=== PATIENT | female | born 1980 | race Caucasian/White ===

== ENCOUNTER 2020-01-20 15:59 | Emergency (ER) | payer OTHER ==
[~2020-01-20] VITALS: Ht 160 cm; Wt 83.0 kg
--- NOTE | 2020-01-20 16:22 | NUR ---
Pt here with c/o SOB. Has couogh and fever. Fall yesterday resulted in L clavicle injury. No deformity noted.
[2020-01-20] MEDS ORDERED: ACETAMINOPHEN 500 MG TABLET PO ONE (16:30)
[2020-01-20] MEDS ORDERED: SODIUM CHLORIDE 0.9% 1,000ML IVBOLUS ONE (16:30)
[2020-01-20] MEDS ORDERED: ACETAMINOPHEN 500 MG TABLET ONE (16:52)
[2020-01-20] MEDS ORDERED: PLEASE ENTER ALLERGIES MC SCH (17:00)
[2020-01-20 17:25] LABS: MEAN CORPUSCULAR HEMOGLOBIN 30.5 pg (27.0-34.8); MEAN CORPUSCULAR HGB CONC 33.6 g/dL (32.4-35.8); MEAN PLATELET VOLUME 8.8 fL (7.4-10.4); PLATELET COUNT 213 x10^3/uL (130-400); RED BLOOD COUNT 4.26 x10^6/uL (3.82-5.3); RED CELL DISTRIBUTION WIDTH 13.8 % (9.6-15.2)
[2020-01-20 17:34] LABS: MD YES
[2020-01-20 17:42] LABS: ALANINE AMINOTRANSFERASE 92 U/L (12-78); ALBUMIN 3.2 g/dL (3.4-5.0); ANION GAP 10 mmol/L (5-15); CALCIUM 8.7 mg/dL (8.5-10.1); CHLORIDE 100 mmol/L (98-107); CREATININE 0.84 mg/dL (0.55-1.02)
[2020-01-20 17:46] LABS: ALKALINE PHOSPHATASE 131 U/L (45-117); BILIRUBIN,TOTAL 1.4 mg/dL (0.2-1.0); TOTAL PROTEIN 7.8 g/dL (6.4-8.2)
--- NOTE | 2020-01-20 18:15 | NUR ---
Pt in bed, continues to take off her oxygen, cant seem to stop moving around in bed. States daily meth use. Requesting food. VS updated.
[2020-01-20 18:42] LABS: BAND#(MANUAL) 1.08 x10^3/uL; BANDS%(MANUAL) 6 % (0-7); LYMPH#(MANUAL) 1.98 x10^3/uL (1-3.4); LYMPHS% (MANUAL) 11 % (22-44); MONOS#(MANUAL) 0.54 x10^3/uL (0.3-2.7); MONOS% (MANUAL) 3 % (2-9); SEGS% (MANUAL) 80 % (42-75)
[2020-01-20 18:43] LABS: <RBC MORPHOLOGY> NORMAL
[2020-01-20 18:44] LABS: <PLATELET ESTIMATE> ADEQUATE; <PLT MORPHOLOGY> NORMAL PLT MORPH
[2020-01-20] MEDS ORDERED: CEFTRIAXONE PMX 1GM/50ML 50 ML IV ONE (19:00)
[2020-01-20] MEDS ORDERED: AZITHROMYCIN 500 MG in SODIUM CHLORIDE 0.9% 250 ML IV ONE (19:00)
--- NOTE | 2020-01-20 19:02 | NUR ---
Report to [facility]
[2020-01-20] MEDS ORDERED: CEFTRIAXONE PMX 1GM/50ML 50 ML ONE (19:16)
[2020-01-20 19:22] VITALS: BP 100/49
--- NOTE | 2020-01-20 19:32 | NUR ---
RN ROUNDING ON PT. STARTING ATB. PT MOANING. COMPLAINING THAT SHE CAN'T BREATHE WITH MASK ON. PT INFORMED SHE MUST KEEP MASK ON WHEN IN THE ROOM. PT HAD REMOVED OXYGEN 89% RA, PLACED BACK ON 3L. RN ASKED IF PT IS IN PAIN, PT SAID "NO, I JUST FEEL TERRIBLE". PT STATING SHE WILL LEAVE HOSPITAL WHEN ATB ARE DONE. [facility].
--- NOTE | 2020-01-20 20:25 | NUR ---
PT REMOVING OXYGEN. PT DESAT TO 87% ON RA WHEN SLEEPING. MD NOTIFIED.
--- NOTE | 2020-01-20 20:41 | NUR ---
Pt desat to 88% on RA. RN informed pt that she needs oxygen. Pt refusing. Pt refusing to wear a mask. Pt coughing all over room. notified of pt refusing oxygen at this time.
--- NOTE | 2020-01-20 21:17 | NUR ---
PT ALERT AND ORIENTED. CURSING AT STAFF. NON COMPLIANT. STATING SHE WANTS TO LEAVE. MD AND RN EXPLAINED RISK OF LEAVING. PT INFORMED THAT IF SHE FEELS WORSE SHE CAN COME BACK TO BE SEEN IN THE ER. AMA PAPERWORK SIGNED. IV REMOVED. PT LEAVING AMA.
--- NOTE | 2020-01-20 21:47 | NUR ---
PT given discharge paperwork with prescription for ATB. RN told pt she needs to fill these ATB. PT verbalized understanding.
== END 2020-01-20 22:38 | disposition home or self-care (01) ==
LOC: ED 21:27
DX: J15.9 Unspecified bacterial pneumonia (principal); D72.829 Elevated white blood cell count, unspecified; F15.10 Other stimulant abuse, uncomplicated; M25.512 Pain in left shoulder; R09.02 Hypoxemia; R50.9 Fever, unspecified; M79.10 Myalgia, unspecified site; R06.02 Shortness of breath; R00.0 Tachycardia, unspecified; Z72.9 Problem related to lifestyle, unspecified
CPT/HCPCS: 36415; 71045; 73000; 80053; 83605; 84145; 84703; 85025; 87040; 93005; 96361; 96365; 96367; 99285; J0456; J0696; J7030; J7050

== ENCOUNTER 2020-08-02 12:34 | Emergency (ER) | payer SELFPAY ==
[~2020-08-02] VITALS: Ht 162.6 cm; Wt 81.1 kg
--- NOTE | 2020-08-02 13:59 | NUR ---
Zoey RN: Pt ambulatory to room from lobby at this time via w/c.
[2020-08-02] MEDS ORDERED: KETOROLAC 30 MG/1 ML IM ONE (14:30)
[2020-08-02] MEDS ORDERED: KETOROLAC 30 MG/1 ML ONE (14:37)
--- NOTE | 2020-08-02 14:43 | NUR ---
MED GIVEN PER ERP ORDER. DC INSTRUCTS PROVIDED. PT AWAITING SPLINT PLACEMENT. PT SLEEPING DURING DC INSTRUCTS. DIFFICULT TO AROUSE. PT STATES "I'M SO TIRED BECAUSE I LIVE ON THE STREET AND DON'T GET ANY SLEEP". UNABLE TO GET PAIN RATING AT THIS TIME.
--- NOTE | 2020-08-02 15:25 | NUR ---
BREAK RN: PT SLEEPING ON GURNEY, NAD WITH EQUAL CHEST RISE/FALL, NO NEEDS AT THIS TIME, CALL LIGHT WITHIN REACH.
[2020-08-02 15:42] VITALS: BP 121/61
--- NOTE | 2020-08-02 16:09 | NUR ---
PT REFUSING TO LEAVE ER. SECURITY CALLED FOR ESCORT OUT.
== END 2020-08-02 16:10 | disposition home or self-care (01) ==
LOC: ED 16:00
DX: S83.92XA Sprain of unspecified site of left knee, initial encounter (principal); W18.30XA Fall on same level, unspecified, initial encounter; Y93.89 Activity, other specified; Y92.410 Unspecified street and highway as the place of occurrence of the external cause; Y99.8 Other external cause status
CPT/HCPCS: 29505; 73564; 96372; 99283; J1885